=== PATIENT | male | born 1970 | race Caucasian/White ===

== ENCOUNTER 2016-06-23 19:31 | Emergency (ER) | payer OTHER ==
[2016-06-23] MEDS ORDERED: ONDANSETRON HCL IV 4 MG/2 ML VIAL IVP ONE (19:50)
[2016-06-23] MEDS ORDERED: METOCLOPRAMIDE HCL 10 MG/2 ML VIAL IV ONE (20:01)
[2016-06-23] MEDS ORDERED: 0.9 % SODIUM CHLORIDE 1,000 ML BAG IV ONE ×2 (20:01→20:59)
[2016-06-23] MEDS ORDERED: DIPHENHYDRAMINE HCL IV 50 MG/ML VIAL IVP ONE (20:02)
--- NOTE | 2016-06-23 20:09 | Emergency Department Record ---
History of Present Illness - General Chief complaint: Vomiting Stated complaint: VOMITING AND OLIVERA Time Seen by Provider: 06/23/16 20:01 Source: Patient Mode of Arrival: Ambulatory Limitations: No limitations - History of Present Illness Initial comments: The patient is here due to multiple complaints. He did see his PCP yesterday and was told his blood sugar was 1200. His PCP did increase his Metformin from one to two pills a day but he was not sent to the ER. Today he was at a softball tournament all day and then developed a throbbing OLIVERA about an hour ago that did cause him to vomit. He may have vomited some blood but presently is quite nauseated. The patient states the OLIVERA did come on fairly quickly and is greatest in the L frontal area. He states he has a long hx of similar issues and OLIVERA's and has had Migraine OLIVERA's similar to this in the past. He denies any new neck pain, CP, SOB or any AP. The patient denies any hx of black or bloody stools. He also has a long hx of chronic neck pain in the past due to an injury and has had cervical fusions. MD complaint: Nausea, Vomiting Onset/Timin -: Minutes(s) Description of Vomiting: Bloody Associated Abdominal Pain: No Radiation: None Severity: Moderate Consistency: Intermittent Associated Symptoms: Denies other symptoms - Related Data Home Medications Medication Instructions Recorded Confirmed Last Taken Metformin HCl [Metformin HCl] 1,000 tab PO BID 09/15/13 06/23/16 03/03/15 Sertraline HCl [Zoloft] 50 mg PO DAILY 09/15/13 06/23/16 03/03/15 Atorvastatin Calcium [Lipitor] 40 mg PO QHS 12/01/15 12/01/15 Unknown Dicyclomine HCl 10 mg PO TID 12/01/15 06/23/16 Unknown Gabapentin [Neurontin] 900 mg PO TID 12/01/15 12/01/15 Unknown Atorvastatin Calcium [Lipitor] 40 mg PO QHS 06/23/16 06/23/16 Unknown Glipizide [Glucotrol] 5 mg PO BID 06/23/16 06/23/16 Unknown Tramadol HCl [Tramadol HCl] 50 mg PO Q8H PRN 06/23/16 06/23/16 Unknown Previous Rx's Medication Instructions Recorded Cyclobenzaprine HCl [Flexeril] 10 mg PO TID PRN #20 tablet 03/03/15 Ciprofloxacin HCl [Cipro] 500 mg PO Q12HR #14 tablet 06/23/16 Allergies Allergy/AdvReac Type Severity Reaction Status Date / Time Sulfa (Sulfonamide Allergy RASH Verified 03/03/15 11:44 Antibiotics) Travel Screening - Travel/Exposure Within Last 30 Days Have you traveled within the last 30 days?: No Review of Systems Constitutional: Denies: Chills, Fever Eyes: Denies: Eye discharge ENT: Denies: Congestion Respiratory: Denies: Cough, Dyspnea Past Medical History - SOCIAL HISTORY Smoking Status: Former smoker Drug Use: None - RESPIRATORY Hx Respiratory Disorders: No - CARDIOVASCULAR Hx Cardio Disorders: No - NEURO Hx Neuro Disorders: Yes Hx Headaches: Yes - GI Hx GI Disorders: No - Hx Genitourinary Disorders: Yes Hx Kidney Stones: Yes - ENDOCRINE Hx Endocrine Disorders: Yes Hx Diabetes: Yes - MUSCULOSKELETAL Hx Musculoskeletal Disorders: No - PSYCH Hx Psych Problems: Yes Hx Anxiety: Yes - HEMATOLOGY/ONCOLOGY Hx Hematology/Oncology Disorders: No Family Medical History Hx Diabetes: Father, Grandparents Hx Heart Disease: Father Physical Exam - General General Appearance: Alert, Oriented x3, Cooperative, No acute distress - Head Head exam: Atraumatic, Normocephalic, Normal inspection - Eye Eye exam: Normal appearance, PERRL, EOMI - ENT Throat exam: Normal inspection. negative: Tonsillar erythema, Tonsillar exudate - Neck Neck exam: Normal inspection, Full ROM. negative: Lymphadenopathy, Meningismus (The patient has chronic neck stiffness due to a cervical fusion.), Tenderness - Respiratory Respiratory exam: Normal lung sounds bilaterally. negative: Respiratory distress - Cardiovascular Cardiovascular Exam: Regular rate, Normal rhythm, Normal heart sounds - GI/Abdominal GI/Abdominal exam: Soft, Normal bowel sounds. negative: Rigid, Tenderness - Extremities Extremities exam: Normal inspection, Full ROM, Normal capillary refill. negative: Tenderness - Neurological Neurological exam: Alert, Normal gait, Oriented X3, Reflexes normal, Other (Neg Drift and Rhomberg exams.). negative: Abnormal gait, Altered, Motor sensory deficit Course Vital Signs 06/23/16 19:53 Temperature 98.2 F Pulse Rate 73 Respiratory 20 Rate Blood Pressure 160/96 Pulse Ox 97 - Reevaluation(s) Reevaluation #1: The patient is doing better at this time. He is resting comfortably with less pain. 06/23/16 20:36 Reevaluation #2: The patient is doing much better now. He denies any OLIVERA, nausea, visual changes or neck pain. 06/23/16 21:52 Reevaluation #3: The patient feels 100% improved at this time. He denies any OLIVERA, nausea, vomiting , or visual changes. The pain did resolve 100% with the Migraine OLIVERA cocktail of Reglan, Benadryl and Toradol. I did explain to the patient that it does appear he has a very mild UTI. His blood sugar is elevated but since his medicines were just adjusted yesterday the patient is to monitor his sugars frequently and see his PCP for recheck on Saturday as planned. 06/23/16 22:25 Medical Decision Making - Data Complexity MDM Data: Labs Ordered and/or Reviewed, X-Ray Ordered and/or Reviewed - Lab Data Result diagrams: 06/23/16 19:50 06/23/16 19:50 - Radiology Data Radiology results: Report reviewed (Head CT: Possible Spenoid sinusitis, O/W neg.) Disposition Disposition: Discharge Clinical Impression: Migraine Qualifiers: Migraine type: unspecified Status migrainosus presence: without status migrainosus Intractability: not intractable Qualified Code(s): G43.909 - Migraine, unspecified, not intractable, without status migrainosus Disposition: Home, Self-Care Condition: (1) Good Instructions: Acute Nausea and Vomiting (ED) Additional Instructions: Please continue your regular medicines and add the Cipro as directed. Please monitor your blood sugars and please return to the ER for any increased pain, fever, or vomiting. Prescriptions: Ciprofloxacin HCl [Cipro] 500 mg PO Q12HR #14 tablet Forms: Patient Portal Access Time of Disposition: 22:28
[2016-06-23 20:14] LABS: BASO % 0.5 % (0-6); EOS % 1.2 % (0-6); GRAN % 53.5 % (47-80); HEMATOCRIT 41.5 % (42.0-52.0); HEMOGLOBIN 14.2 gm/dl (14.0-18.0); MEAN CELL VOLUME 89.6 fl (81-97); MEAN CORPUSCULAR HEMOGLOBIN 30.7 pg (27-33); MEAN CORPUSCULAR HGB CONC 34.2 g/dl (32-36); MEAN PLATELET VOLUME 10.1 fl (7.4-10.4); MONO % 5.8 % (0-9); PLATELET COUNT 322 K/uL (130-400); RED BLOOD COUNT 4.63 M/uL (4.40-5.70); RED CELL DISTRIBUTION WIDTH 12.7 % (11.5-14.5)
[2016-06-23 20:21] LABS: ALBUMIN 4.6 gm/dL (3.5-5.0); ALKALINE PHOSPHATASE 98 U/L (38-126); ALT/SGPT 33 U/L (21-72); ANION GAP 13.1 (7-16); AST/SGOT 19 U/L (17-59); BILIRUBIN,TOTAL 0.63 mg/dL (0.2-1.3); BLOOD UREA NITROGEN 17 mg/dL (9-20); CARBON DIOXIDE 25.9 mmol/L (22-30); CREATININE 0.8 mg/dL (0.66-1.25); EST GLOMERULAR FILTRATION RATE > 60 ml/min; GLUCOSE,RANDOM 325 mg/dL (70-110); TOTAL PROTEIN 7.5 gm/dL (6.3-8.2)
[2016-06-23] MEDS ORDERED: KETOROLAC 30 MG/ML VIAL IVP ONE (20:59)
[2016-06-23 21:52] LABS: URINE APPEARANCE CLEAR; URINE BILIRUBIN NEGATIVE (NEGATIVE); URINE BLOOD NEGATIVE (NEGATIVE); URINE COLOR YELLOW; URINE KETONE TRACE (NEGATIVE); URINE LEUKOCYTE ESTERASE TRACE (NEGATIVE); URINE NITRITE NEGATIVE (NEGATIVE); URINE PROTEIN NEGATIVE (NEGATIVE); URINE UROBILINOGEN 0.2 E.U./dL (0.20 - 1.00)
[2016-06-23 21:55] LABS: URINE GLUCOSE (UA) >=1000 mg/dL (NEGATIVE)
[2016-06-23 22:16] LABS: URINE RBC 0 - 2 (NONE SEEN)
[2016-06-23 22:17] LABS: URINE BACTERIA 1+; URINE MUCUS LIGHT
[2016-06-23] MEDS ORDERED: CIPROFLOXACIN HCL 500 MG TABLET PO ONE (22:24)
== END 2016-06-23 22:36 | disposition home or self-care (01) ==
LOC: ER 19:31
DX: G43.909 Migraine, unspecified, not intractable, without status migrainosus (principal); R11.2 Nausea with vomiting, unspecified; E11.9 Type 2 diabetes mellitus without complications; Z79.84 Long term (current) use of oral hypoglycemic drugs
CPT/HCPCS: 99284 ×2; 96374; 96375; 85025; 80076; 86140; 80048; 36416; 81001; 82948; 70450; J1885; J2405; J1200; J2765; J7030